=== PATIENT | female | born 1985 | race Caucasian/White ===

== ENCOUNTER 2021-10-28 23:28 | Inpatient (IN) | payer OTHER, SELFPAY ==
[2021-10-29 00:22] VITALS: BMI 23.1
[2021-10-29 00:39] LABS: Bilirubin Neg (Negative); Blood, Urine 150 (Negative); Clarity Cloudy (Clear); Glucose, Urine (Dipstick) Normal (Negative); Ketone, Urine Negative (Negative); Leukocyte 500 (Negative); Nitrite Negative (Negative); Protein, Urine (Dipstick) 100 mg/dl (Neg-Trace); Specific Gravity, Urine 1.015 (1.002-1.036); Urobilinogen Normal mg/dL (Less than 2)
[2021-10-29] MEDS ORDERED: Penicillin G Potassium 5 MILL.UNITS VIAL ONE (00:53)
[2021-10-29] MEDS ORDERED: Magnesium Sulfate 20 gm/500 ml 20 GM/500 ML BAG ONE (00:53)
[2021-10-29] MEDS ORDERED: Betamet Acet/Betamet Na Ph 30 MG/5 ML VIAL ONE (00:53)
[2021-10-29] MEDS: Magnesium Sulfate 20 gm/500 ml 20 GM/500 ML BAG IVPB SCH ×2 (00:55→08:24)
[2021-10-29] MEDS ORDERED: Promethazine HCl 25 MG/ML VIAL IM PRN (00:55)
[2021-10-29] MEDS ORDERED: Misoprostol 200 MCG TAB PR PRN (00:55)
[2021-10-29] MEDS ORDERED: Carboprost 250 MCG/ML AMP IM PRN (00:55)
[2021-10-29] MEDS ORDERED: HYDROcodone/Acetaminophen 5/325 mg Tablet PO PRN ×2 (00:55)
[2021-10-29] MEDS ORDERED: Butorphanol Tartrate 1 MG/ML VIAL SLOW IVP PRN (00:55)
[2021-10-29] MEDS ORDERED: Ondansetron PF 4 MG/2 ML Vial IVP PRN (00:55)
[2021-10-29] MEDS ORDERED: Ibuprofen 800 MG TAB PO PRN (00:55)
[2021-10-29] MEDS ORDERED: Methylergonovine 0.2 MG/ML VIAL IM PRN (00:55)
[2021-10-29] MEDS ORDERED: Diphenoxylate HCl/Atropine Tablet PO PRN ×2 (00:55)
[2021-10-29] MEDS ORDERED: Lidocaine 1% (PF) 30 ML VIAL SC PRN (00:55)
[2021-10-29] MEDS ORDERED: Acetaminophen 500 MG TAB PO PRN (00:55)
[2021-10-29] MEDS ORDERED: hydrALAZINE 20 MG/ML VIAL SLOW IVP PRN (00:55)
[2021-10-29] MEDS ORDERED: Penicillin G Potassium 5 MILL.UNITS in Sodium Chloride 0.9% 100 ML IVPB SCH (01:00)
[2021-10-29] MEDS ORDERED: Lactated Ringer's 1,000 ML IV SCH (01:00)
[2021-10-29] MEDS ORDERED: NS w/ Oxytocin 30 units 500 ML IV SCH (01:00)
[2021-10-29] MEDS ORDERED: Calcium Gluc 4.6 MEQ/10 ML (100 MG/ML) SLOW IVP PRN (01:01)
[2021-10-29 01:06] LABS: WBC/HPF Greater than 50 HPF (0-3)
[2021-10-29 01:07] LABS: RBC/HPF 21-50 HPF (0-3)
[2021-10-29 01:08] LABS: Bacteria/HPF 3+ HPF (None Seen)
[2021-10-29] MEDS ORDERED: Magnesium Sulfate 20 GM/WATER 500 ML BAG IVPB SCH (01:15)
[2021-10-29] MEDS ORDERED: Betamet Acet/Betamet Na Ph 30 MG/5 ML VIAL IM SCH (01:30)
[2021-10-29 02:02] LABS: Hemoglobin 12.1 g/dL (12.0-15.5); Mean Corpuscular HGB CONC 34.7 g/dL (32.0-36.0); Mean Corpuscular Hemoglobin 34.2 pg (27.0-33.0); Mean Corpuscular Volume 98.6 fl (81.6-98.3); Mean Platelet Volume 10.7 fl (7.4-10.4); Platelet Count 191 10x3/uL (150-450); RBC Distribution Width 13.5 % (11.5-14.5); Red Blood Cell (RBC) Count 3.54 10x6/uL (3.90-5.03); White Blood Cell (WBC) Count 12.2 10x3/uL (3.5-10.5)
[2021-10-29 02:07] LABS: Syphilis Antibody Nonreactive (Nonreactive); Syphilis Antibody Index 0.03 S/CO (<1.00 Non-Reactive)
[2021-10-29 02:08] LABS: HIV (1/2) Antibody/Antigen Non-Reactive (NonReactive); Hep B Surf Ag Non-Reactive S/CO (NonReactive)
[2021-10-29] MEDS ORDERED: Azithromycin 500 MG VIAL ONE (02:37)
[2021-10-29 02:41] LABS: Bilirubin Neg (Negative); Blood, Urine Negative (Negative); Clarity Clear (Clear); Glucose, Urine (Dipstick) Normal (Negative); Ketone, Urine 5 mg/dL (Negative); Leukocyte Negative (Negative); Nitrite Negative (Negative); Protein, Urine (Dipstick) Negative (Neg-Trace); Specific Gravity, Urine 1.015 (1.002-1.036); Urobilinogen Normal mg/dL (Less than 2)
[2021-10-29 02:45] LABS: Urine Culture Reflex No No
[2021-10-29] MEDS ORDERED: Azithromycin 500 MG in Sodium Chloride 0.9% 250 ML 250 ML IVPB SCH (02:45)
[2021-10-29] MEDS ORDERED: Azithromycin 1,000 MG in Sodium Chloride 0.9% 500 ML IVPB SCH (02:45)
[2021-10-29] MEDS ORDERED: Azithromycin 500 MG in Sodium Chloride 0.9% 500 ML IVPB SCH (02:45)
[2021-10-29 02:51] LABS: Amphetamine Not Detected (NotDetected); Barbiturates Screen Not Detected (NotDetected); Benzodiazepine Screen Not Detected (NotDetected); Cocaine Metabolite Screen Not Detected (NotDetected); Methadone Not Detected (NotDetected); Methamphetamine Not Detected (NotDetected); Opiate Screen Not Detected (NotDetected); Oxycodone Screen Not Detected (NotDetected); Phencyclidine (PCP) Not Detected (NotDetected); THC/Cannabinoid Screen Not Detected (NotDetected); Tricyclic Screen Not Detected (NotDetected)
[2021-10-29] MEDS: Penicillin G 2.5 MILL.units 2.5 MILL.UNITS in Premix Bag 1 BAG IVPB SCH ×3 (02:53→08:30)
[2021-10-29 03:25] LABS: SARS-CoV-2 NAA Rapid Test Not Detected (NotDetected)
[2021-10-29 03:44] LABS: RBC/HPF 0-3 HPF (0-3); Squamous Epithelial 0-3 HPF (0-3)
[2021-10-29 03:45] LABS: Bacteria/HPF Rare-Few HPF (None Seen)
[2021-10-29] MEDS ORDERED: Terbutaline Sulfate 1 MG/ML VIAL ONE (09:53)
[2021-10-29] MEDS ORDERED: Terbutaline Sulfate 1 MG/ML VIAL SC SCH (10:00)
[2021-10-29] MEDS ORDERED: Indomethacin 25 mg Capsule PO SCH (10:45)
[2021-10-31 05:26] LABS: Chlamydia by PCR Not Detected (NotDetected); GC by PCR Not Detected (NotDetected)
== END 2021-10-29 12:28 | disposition short-term general hospital (02) | DRG 833 ==
LOC: CSHLD/OP 23:28 → CSHLD 10-29 01:10
PROVIDERS: ADMIT Family Medicine; ATTEND Family Medicine
DX: O42.112 Preterm premature rupture of membranes, onset of labor more than 24 hours following rupture, second trimester (principal); Z20.822 Contact with and (suspected) exposure to COVID-19; Z90.49 Acquired absence of other specified parts of digestive tract; Z3A.24 24 weeks gestation of pregnancy
CPT/HCPCS: 36415; 51702; 76815; 80306; 81001; 85027; 86780; 86850; 86900; 86901; 87081; 87086; 87340; 87389; 87480; 87491; 87510; 87591; 87660; 99285; J0456; J0702; J2540; J3105; J3475; J3490; J7030; J7120; U0002